=== PATIENT | male | born 1930 | race Caucasian/White ===

== ENCOUNTER 2021-06-26 08:16 | Emergency (ER) | payer OTHER ==
[2021-06-26 09:26] VITALS: TEMP 98.1; BMI 27.2
[2021-06-26 09:51] VITALS: PULSE 58
[2021-06-26 10:05] LABS: BASO % 0.6 % (0-2.0); EOS % 5.6 % (0-4.5); HEMATOCRIT 37.3 % (35.4-49); HEMOGLOBIN 12.3 GM/dl (11.7-16.9); MCH 31.2 pg (25.7-33.7); MCHC 33.1 g/dl (32.0-35.9); MEAN CELL VOLUME 94.3 fl (80-96); MEAN PLT VOLUME 8.5 fl (7.5-11.1); MONO % 5.1 % (3.8-10.2); NEUT % 76.7 % (42.8-82.8); PLATELET COUNT 196 10^3/uL (134-434); RBC 3.95 M/mm3 (4.00-5.60); RDW 13.6 % (11.9-15.9); WHITE BLOOD COUNT 10.4 K/mm3 (4.0-10.8)
[2021-06-26 10:09] LABS: ALBUMIN 3.2 g/dl (3.4-5.0); ALK PHOS 74 U/L (45-117); ANION GAP 9 MMOL/L (8-16); BILIRUBIN,TOTAL 1.4 mg/dl (0.2-1); CALCIUM 8.9 mg/dl (8.5-10); CHLORIDE 105 mmol/L (98-107); CO2 25 mmol/L (21-32); CREATININE 2.4 mg/dl (0.55-1.3); GLUCOSE,RANDOM 101 mg/dl (74-106); SGOT/AST 19 U/L (15-37); SGPT/ALT 25 U/L (13-61); SODIUM 139 mmol/L (136-145); TOT PROT 5.8 g/dl (6.4-8.2)
[2021-06-26 10:31] VITALS: BP 144/67
== END 2021-06-26 13:00 | disposition home or self-care (01) ==
LOC: FER 08:16 → SUPCPDRO 08:16 → FER 13:00
DX: S70.01XA Contusion of right hip, initial encounter (principal); E86.0 Dehydration; W06.XXXA Fall from bed, initial encounter
CPT/HCPCS: 36415; 71045-TC-FY; 73523-TC-FY; 80053; 82550; 84484; 85025; 93005; 99285-25